=== PATIENT | female | born 1980 | race Caucasian/White ===

== ENCOUNTER 2021-11-01 12:08 | Emergency (ER) | payer OTHER ==
[2021-11-01] MEDS ORDERED: Calcium Chloride 1 GM/10 ML Abboject SYRINGE ONE (12:09)
[2021-11-01] MEDS ORDERED: EPINEPHrine 1 MG/10 ML Abboject SYRINGE ONE (12:09)
[2021-11-01] MEDS ORDERED: Sodium Bicarb 50 MEQ/50 ML Abboject 8.4% SYRINGE ONE (12:09)
[2021-11-01] MEDS ORDERED: Magnesium 2 GM/50 ML BAG (IN WATER) ONE (12:21)
[2021-11-01] MEDS ORDERED: DOBUTamine 500 mg/250 ml 250 ML ONE (12:31)
[2021-11-01 15:39] LABS: SARS-CoV-2 NAA Rapid Test Not Detected (NotDetected)
== END 2021-11-01 12:33 | disposition expired ==
LOC: ERS 12:08
DX: I46.9 Cardiac arrest, cause unspecified (principal); Z20.822 Contact with and (suspected) exposure to COVID-19
CPT/HCPCS: 36416; 92950; 94760; 96374; 96375; 96376; J0171; J1250; J3475; U0002